=== PATIENT | male | born 1965 ===

== ENCOUNTER 2017-02-19 23:12 | Observation (INO) | payer OTHER ==
--- NOTE | 2017-02-19 23:52 | C.PDOC ---
History Of Present Illness 51 year old male with Hx of seizures and HLD presents to the ED with complaints of chest pain that radiates down his left arm. 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 He decided to come into the Ed after his pain radiated towards his arm, states his CP gets worse with exertion. Patient denies diabetes, fever, nausea, vomit, chills, known sick contacts. Time Seen by Provider: 02/19/17 23:51 Chief Complaint (Nursing): Chest Pain History Per: Patient History/Exam Limitations: no limitations Onset/Duration Of Symptoms: Hrs Current Symptoms Are (Timing): Still Present Pain Scale Rating Of: 4 Quality: Tightness Associated Symptoms: denies: Nausea, Dyspnea, Diaphoresis Exacerbating Factors: Exertion Recent travel outside of the [place]: No Additional History Per: Patient Past Medical History Reviewed: Historical Data, Nursing Documentation, Vital Signs Vital Signs: Last Vital Signs Temp 98 F 02/20/17 00:38 Pulse 62 02/20/17 02:07 Resp 22 02/20/17 02:07 BP 133/77 02/20/17 02:07 Pulse Ox 97 02/20/17 02:46 - Medical History PMH: Hypercholesterolemia, Seizures Surgical History: No Surg Hx Family History: States: Unknown Family Hx - Social History Hx Alcohol Use: No Hx Substance Use: No - Immunization History Hx Tetanus Toxoid Vaccination: No Hx Influenza Vaccination: No Hx Pneumococcal Vaccination: No Review Of Systems Constitutional: Negative for: Fever, Chills, Sweats Cardiovascular: Positive for: Chest Pain. Negative for: Palpitations, Light Headedness Respiratory: Positive for: Shortness of Breath. Negative for: Cough Gastrointestinal: Negative for: Nausea, Vomiting Neurological: Negative for: Weakness, Numbness Physical Exam - Physical Exam Appears: Non-toxic, No Acute Distress Skin: Normal Color, Warm, Dry Head: Atraumatic, Normacephalic Oral Mucosa: Moist Neck: Normal, Supple Chest: Symmetrical, Tenderness (mild ) Cardiovascular: Rhythm Regular (slow), No Friction Rub, No Murmur Respiratory: Normal Breath Sounds, No Accessory Muscle Use, No Rales, No Rhonchi , No Wheezing Gastrointestinal/Abdominal: Bowel Sounds (active), Soft, No Tenderness, No Guarding, No Rebound Extremity: Normal ROM, No Tenderness, No Pedal Edema, No Calf Tenderness, Capillary Refill (less than 2 seconds), No Deformity, No Swelling Pulses: Left Radial: Normal, Right Radial: Normal, Left Dorsalis Pedis: Normal, Right Dorsalis Pedis: Normal Neurological/Psych: Oriented x3, Normal Speech, Normal Cognition, Normal Motor, Normal Sensation ED Course And Treatment - Laboratory Results Result Diagrams: 02/20/17 00:11 02/20/17 00:11 ECG: Interpreted By Me, Viewed By Me ECG Rhythm: Sinus Bradycardia Interpretation Of ECG: Inverted T, AVL, No acute ST-T chnage, no ectopy, interval in normal limits Rate From EC O2 Sat by Pulse Oximetry: 97 Medical Decision Making Medical Decision Making: Impression: 51 y/o male with CP, SOB since this morning Plan : * EKG ordered * Blood work ordered * CXR ordered * ASA and Nitroglycerin administered * UA ordered Upon reevaluation patient states that the medicine administered helped relief the pain. History of patient proves increased chance ACS, spoke with hospitalist Dr. Strauss who agreed and admitted the patient for further observation tonight. Disposition - Disposition Disposition: HOSPITALIZED Disposition Time: 01:55 Condition: FAIR - Clinical Impression Clinical Impression: Chest pain - Scribe Statement The provider has reviewed the documentation as recorded by the Scribe Yoni Steele All medical record entries made by the Scribe were at my direction and personally dictated by me. I have reviewed the chart and agree that the record accurately reflects my personal performance of the history, physical exam, medical decision making, and the department course for this patient. I have also personally directed, reviewed, and agree with the discharge instructions and disposition.
[2017-02-20 00:14] LABS: BASO % 0.6 % (0.0-2.0); EOS # 0.4 K/uL (0.0-0.7); EOS % 5.5 % (0.0-4.0); HEMATOCRIT 41.3 % (35.0-51.0); LYMPH # 2.7 K/uL (1.0-4.3); LYMPH % 40.4 % (20.0-40.0); MEAN CELL VOLUME 93.9 fL (80.0-94.0); MEAN CORPUSCULAR HGB CONC 35.2 g/dL (33.0-37.0); MONO # 0.6 K/uL (0.0-0.8); MONO % 9.7 % (0.0-10.0); RED CELL DISTRIBUTION WIDTH 12.7 % (11.5-14.5); WHITE BLOOD COUNT 6.6 K/uL (4.8-10.8)
[2017-02-20 00:23] LABS: CHLORIDE 98 mmol/L (98-107); INR 1.2; PARTIAL THROMBOPLASTIN TIME 33 SECONDS (21-34); POTASSIUM 3.9 mmol/L (3.6-5.2); SODIUM 135 mmol/L (132-148)
[2017-02-20 00:25] LABS: AST/SGOT 36 U/L (17-59); BILIRUBIN,TOTAL 0.7 mg/dL (0.2-1.3); CARBON DIOXIDE 22 mmol/L (22-30); GFR AFRICAN-AMERICAN > 60
[2017-02-20 00:26] LABS: ALB/GLOB RATIO 1.3 (1.0-2.1); ALKALINE PHOSPHATASE 85 U/L (38-126); ALT/SGPT 50 U/L (21-72); BLOOD UREA NITROGEN 16 mg/dL (9-20); CALCIUM 9.5 mg/dl (8.6-10.4); GLUCOSE,RANDOM 84 mg/dL (75-110); TOTAL PROTEIN 8.3 g/dL (6.3-8.3)
[2017-02-20 01:01] LABS: RBC URINE < 1 /hpf (0-3); URINE BILIRUBIN NEGATIVE (NEGATIVE); URINE BLOOD NEGATIVE (NEGATIVE); URINE COLOR Straw (YELLOW); URINE GLUCOSE (UA) NORMAL (Normal); URINE KETONE NEGATIVE (NEGATIVE); URINE LEUKOCYTE ESTERASE NEG Leu/uL (Negative); URINE PROTEIN NEGATIVE (NEGATIVE); URINE UROBILINOGEN NORMAL mg/dL (0.2-1.0); WBC URINE < 1 /hpf (0-5)
[2017-02-20] MEDS ORDERED: Nitroglycerin 2% Ointment Foilpak UD TOP STA (01:51)
[2017-02-20] MEDS ORDERED: Nitroglycerin 2% Ointment Foilpak UD TOP ONE (02:08)
--- NOTE | 2017-02-20 02:31 | CP.PCM.HP ---
<JonnieHaylee - Last Filed: 02/20/17 02:48> History of Present Illness - History of Present Illness History of Present Illness: History and Physical for Dr. Whitmore 51M presents with chest pain radiating down left arm. Patient has a PMH of seizures and HLD. Patient states he feels pressure on his chest which started at 11 am while he was standing. Patient stated this has never happened before and does not occur with walking. Patient works in a area with cooking. Patient stated the pain lasted around 30minutes but was not constant. Patient denies fever, chills, nausea, vomiting, hematochezia, dysuria, troule with vision. PMH: seizures, HLD PSH: none Social: patient works in kitchen, never smoker, no ETOH, no illicit drugs FHx: no family history of heart disease Allergies NKDA Present on Admission - Present on Admission Any Indicators Present on Admission: No History of DVT/PE: No History of Uncontrolled Diabetes: No Urinary Catheter: No Decubitus Ulcer Present: No Past Patient History - Past Social History Smoking Status: Never Smoked - CARDIAC Hx Hypercholesterolemia: Yes - NEUROLOGICAL Hx Seizures: Yes - PSYCHIATRIC Hx Substance Use: No Meds Allergies/Adverse Reactions: Allergies Allergy/AdvReac Type Severity Reaction Status Date / Time No Known Allergies Allergy Verified 02/20/17 02:40 Physical Exam - Constitutional Appears: Non-toxic - Head Exam Head Exam: NORMAL INSPECTION - Eye Exam Eye Exam: EOMI, Normal appearance - ENT Exam ENT Exam: Mucous Membranes Moist - Respiratory Exam Respiratory Exam: NORMAL BREATHING PATTERN. absent: Accessory Muscle Use, Respiratory Distress - Cardiovascular Exam Cardiovascular Exam: REGULAR RHYTHM, +S1, +S2. absent: Bradycardia, Tachycardia - GI/Abdominal Exam GI & Abdominal Exam: Soft. absent: Tenderness - Extremities Exam Extremities exam: Positive for: full ROM. Negative for: pedal edema - Neurological Exam Neurological exam: Alert, CN II-XII Intact - Psychiatric Exam Psychiatric exam: Normal Affect, Normal Mood - Skin Skin Exam: Dry, Intact, Pallor Results - Vital Signs Recent Vital Signs: Last Vital Signs Temp 98 F 02/20/17 00:38 Pulse 62 02/20/17 02:07 Resp 22 02/20/17 02:07 BP 133/77 02/20/17 02:07 Pulse Ox 97 02/20/17 02:27 - Labs Result Diagrams: 02/20/17 00:11 02/20/17 00:11 Labs: Laboratory Results - last 24 hr 02/20/17 02/20/17 02/20/17 00:11 00:11 00:11 WBC 6.6 RBC 4.40 Hgb 14.5 Hct 41.3 MCV 93.9 MCH 33.0 H MCHC 35.2 RDW 12.7 Plt Count 179 MPV 7.0 L Neut % (Auto) 43.8 L Lymph % (Auto) 40.4 H Hamilton % (Auto) 9.7 Eos % (Auto) 5.5 H Baso % (Auto) 0.6 Neut # 2.9 Lymph # 2.7 Hamilton # 0.6 Eos # 0.4 Baso # 0.0 PT 13.2 H INR 1.2 APTT 33 D-Dimer, Quantitative < 200 Sodium 135 Potassium 3.9 Chloride 98 Carbon Dioxide 22 Anion Gap 19 BUN 16 Creatinine 0.7 L Est GFR ( Amer) > 60 Est GFR (Non-Af Amer) > 60 Random Glucose 84 Calcium 9.5 Total Bilirubin 0.7 AST 36 ALT 50 Alkaline Phosphatase 85 Troponin I < 0.0120 NT-Pro-B Natriuret Pep 48.6 Total Protein 8.3 Albumin 4.6 Globulin 3.7 Albumin/Globulin Ratio 1.3 Urine Color Urine Clarity Urine pH Ur Specific Atco Urine Protein Urine Glucose (UA) Urine Ketones Urine Blood Urine Nitrate Urine Bilirubin Urine Urobilinogen Ur Leukocyte Esterase Urine WBC (Auto) Urine RBC (Auto) 02/20/17 00:56 WBC RBC Hgb Hct MCV MCH MCHC RDW Plt Count MPV Neut % (Auto) Lymph % (Auto) Hamilton % (Auto) Eos % (Auto) Baso % (Auto) Neut # Lymph # Hamilton # Eos # Baso # PT INR APTT D-Dimer, Quantitative Sodium Potassium Chloride Carbon Dioxide Anion Gap BUN Creatinine Est GFR ( Amer) Est GFR (Non-Af Amer) Random Glucose Calcium Total Bilirubin AST ALT Alkaline Phosphatase Troponin I NT-Pro-B Natriuret Pep Total Protein Albumin Globulin Albumin/Globulin Ratio Urine Color Straw Urine Clarity Clear Urine pH 6.0 Ur Specific Atco 1.009 Urine Protein Negative Urine Glucose (UA) Normal Urine Ketones Negative Urine Blood Negative Urine Nitrate Negative Urine Bilirubin Negative Urine Urobilinogen Normal Ur Leukocyte Esterase Neg Urine WBC (Auto) < 1 Urine RBC (Auto) < 1 Assessment & Plan - Assessment and Plan (Free Text) Assessment: Unstable angina Metoprolol 25mg POBID Nitro sublingual 0.5mg x3 PRN chest pain ASA 81mg POQD Serial troponin I's EKGs f/u AM: A1c, TSH, Lipid Panel 02/20 Cardio Consult: Dr. Sincere Arteaga Hyperlipidemia rosuvostatin 20mg IVQD hx Seizures Continue on seizure medications Patient takes 300mg QAM and QHS Patient takes 150mg QNOON Ativan 2mg IVP Q4H PRN seizures Prophylaxis Lovenox 1mg/kg Q12H ~64 Protonix 40mg POQD discussed with Dr. Myranda Cristina DO PGY1 - Date & Time Date: 02/20/17 Time: 02:35 <Myranda GARCIA,Mike - Last Filed: 02/22/17 09:41> Results - Vital Signs Recent Vital Signs: Last Vital Signs Temp 97.8 F 02/21/17 15:00 Pulse 56 L 02/21/17 15:00 Resp 20 02/21/17 15:00 BP 127/86 02/21/17 15:00 Pulse Ox 96 02/21/17 15:00 - Labs Result Diagrams: 02/21/17 08:43 02/21/17 08:43 Labs: Laboratory Results - last 24 hr 02/21/17 02/21/17 08:43 08:43 Hemoglobin A1c 5.8 TSH 3rd Generation 1.54 Attending/Attestation - Attestation I have personally seen and examined this patient.: Yes I have fully participated in the care of the patient.: Yes I have reviewed all pertinent clinical information: Yes Notes (Text): -I agree with the above H&P completed by the resident physician.
[2017-02-20] MEDS ORDERED: Sodium Chloride 0.9% 1,000 ML IV SCH (03:00)
[2017-02-20 07:54] VITALS: RESP 20
[2017-02-20 08:24] LABS: BASO % 0.6 % (0.0-2.0); EOS # 0.4 K/uL (0.0-0.7); HEMATOCRIT 41.8 % (35.0-51.0); MEAN CELL VOLUME 92.9 fL (80.0-94.0); MEAN CORPUSCULAR HEMOGLOBIN 32.7 pg (27.0-31.0); MEAN CORPUSCULAR HGB CONC 35.2 g/dL (33.0-37.0); MEAN PLATELET VOLUME 7.3 fL (7.2-11.7); MONO # 0.4 K/uL (0.0-0.8); MONO % 7.9 % (0.0-10.0); NRBC % 0.1 % (0.0-2.0); RED CELL DISTRIBUTION WIDTH 12.8 % (11.5-14.5); WHITE BLOOD COUNT 4.7 K/uL (4.8-10.8)
[2017-02-20 08:28] LABS: CHLORIDE 99 mmol/L (98-107)
[2017-02-20 08:29] LABS: POTASSIUM 3.2 mmol/L (3.6-5.2); SODIUM 134 mmol/L (132-148)
[2017-02-20 08:31] LABS: ALB/GLOB RATIO 1.8 (1.0-2.1); ALKALINE PHOSPHATASE 69 U/L (38-126); AST/SGOT 34 U/L (17-59); BILIRUBIN,TOTAL 0.6 mg/dL (0.2-1.3); CARBON DIOXIDE 23 mmol/L (22-30); GFR AFRICAN-AMERICAN > 60; TOTAL PROTEIN 6.7 g/dL (6.3-8.3)
[2017-02-20 08:32] LABS: ALT/SGPT 40 U/L (21-72); BLOOD UREA NITROGEN 14 mg/dL (9-20); CALCIUM 8.8 mg/dl (8.6-10.4); GLUCOSE,RANDOM 81 mg/dL (75-110)
[2017-02-20] MEDS: Pantoprazole 40 mg EC Tab PO SCH (09:53)
[2017-02-20] MEDS ORDERED: Metoprolol Succinate 25 mg XL Tab PO SCH ×2 (10:00)
[2017-02-20] MEDS ORDERED: Enoxaparin 80 mg Syringe SC SCH (10:00)
--- NOTE | 2017-02-20 11:04 | RAD ---
PROCEDURE: CHEST RADIOGRAPH, 1 VIEW HISTORY: chest pain COMPARISON: None available. FINDINGS: LUNGS: Poor inspiration with low lung volumes, crowded bronchovascular markings and mild bibasilar atelectasis. PLEURA: No pneumothorax or pleural fluid seen. CARDIOVASCULAR: Normal. OSSEOUS STRUCTURES: No significant abnormalities. VISUALIZED UPPER ABDOMEN: Normal. OTHER FINDINGS: None. IMPRESSION: Poor inspiration with low lung volumes, crowded bronchovascular markings and mild bibasilar atelectasis.
[2017-02-20] MEDS: Potassium Chloride 20 mEq ER Tab PO SCH (11:44)
[2017-02-20] MEDS: carBAMazepine 100 mg/5 ml Oral Susp (450 ml) PO SCH (14:32)
--- NOTE | 2017-02-20 16:29 | CP.PCM.PN ---
<Danelle Sy - Last Filed: 02/20/17 16:18> Subjective - Date & Time of Evaluation Date of Evaluation: 02/20/17 Time of Evaluation: 08:00 - Subjective Subjective: Medicine Progress Note- Dr. Eduard Russell's service: Patient seen and examined at bedside this AM. Patient reports he is feeling much better. Chest pain has resolved since admission. Patient is not sure why chest pain occurred. He denies history of chest pain. Patient admits to taking only seizure medication and cholesterol medication. He has no SOB, no fevers, no chills, no nausea, no vomiting, no palpitations. He does not feel dizzy and denies near-syncope. Objective - Vital Signs/Intake and Output Vital Signs (last 24 hours): Temp Pulse Resp BP Pulse Ox 97.9 F 58 L 20 122/74 95 02/20/17 16:07 02/20/17 16:07 02/20/17 16:07 02/20/17 16:07 02/20/17 16:07 - Medications Medications: Current Medications Acetaminophen (Tylenol 325mg Tab) 650 mg PO Q6 PRN PRN Reason: Fever >100.4 F Aspirin (Aspirin Chewable) 81 mg PO DAILY [facility] Last Admin: 02/20/17 09:53 Dose: 81 mg Carbamazepine (Tegretol) 150 mg PO DAILY@1200 [facility] Last Admin: 02/20/17 14:32 Dose: 150 mg Carbamazepine (Tegretol-Xr) 300 mg PO Q12H [facility] Last Admin: 02/20/17 06:33 Dose: 300 mg Nitroglycerin (Nitrostat Sl Tab) 0.4 mg SL Q5M PRN PRN Reason: Other Pantoprazole Sodium (Protonix Ec Tab) 40 mg PO DAILY [facility] Last Admin: 02/20/17 09:53 Dose: 40 mg Pneumococcal Polyvalent Vaccine (Pneumovax 23 Vaccine) 0.5 ml IM .ONCE ONE Stop: 02/22/17 14:01 Potassium Chloride (K-Dur 20 Meq Er Tab) 40 meq PO DAILY [facility] Last Admin: 02/20/17 11:44 Dose: 40 meq Rosuvastatin Calcium (Crestor) 20 mg PO HS [facility] - Labs Labs: 02/20/17 07:55 02/20/17 07:55 PT 13.2 SECONDS (9.7-12.2) H 02/20/17 00:11 INR 1.2 02/20/17 00:11 APTT 33 SECONDS (21-34) 02/20/17 00:11 - Constitutional Appears: No Acute Distress - Head Exam Head Exam: NORMAL INSPECTION, NORMOCEPHALIC - Eye Exam Eye Exam: EOMI, Normal appearance - ENT Exam ENT Exam: Mucous Membranes Moist - Neck Exam Neck Exam: Full ROM - Respiratory Exam Respiratory Exam: Clear to Ausculation Bilateral, NORMAL BREATHING PATTERN - Cardiovascular Exam Cardiovascular Exam: REGULAR RHYTHM, +S1, +S2 - GI/Abdominal Exam GI & Abdominal Exam: Soft, Normal Bowel Sounds. absent: Distended, Tenderness - Extremities Exam Extremities Exam: Full ROM, Normal Inspection. absent: Pedal Edema - Back Exam Back Exam: Full ROM, NORMAL INSPECTION - Neurological Exam Neurological Exam: Alert, Awake, Oriented x3 - Psychiatric Exam Psychiatric exam: Normal Affect, Normal Mood - Skin Skin Exam: Normal Color, Warm Assessment and Plan (1) Chest pain Assessment & Plan: Troponin negative X3. CK-MB 3.52 EKG X3 shows sinus bradycardia in the 50's with RBBB. Cardio consult placed on admission- Dr. Sincere Arteaga- help appreciated. Called placed to Dr. Arteaga at 16:00 on 02/20/17. Dr. Arteaga will see patient tonight or tomorrow in the AM. ProBNP 48 D-Dimer <200 F/u A1c, TSH, Lipid Panel * D/C Metoprolol 25mg as patient is Bradycardic. * Nitro sublingual 0.5mg x3 PRN chest pain * ASA 81mg PO QD * Crestor 20 mg PO HS Status: Acute (2) Bradycardia Assessment & Plan: EKG X3 shows sinus bradycardia in the 50's with RBBB. Cardio consult placed- Dr. Sincere Arteaga D/C Metoprolol 25mg as patient is Bradycardic. Status: Acute (3) Hyperlipidemia Assessment & Plan: F/U FLP in the AM Patient takes Gemfibrozil 600 mg (2 tabs) PO daily - confirmed with patient's pharmacy ([facility], [place], [place]) Crestor 10 mg PO HS Status: Acute (4) Hx of seizure disorder Assessment & Plan: Patient's home med: Carbamazepine 300mg QAM and QHS and 150mg QNOON- confirmed with patient's pharmacy ([facility], [place], [place]). Ativan 2mg IVP Q4H PRN seizures Seizure Precautions Status: Acute (5) Prophylactic measure Assessment & Plan: Lovenox 40 SC daily Protonix 40mg POQD Status: Acute <DrewEduard Elizondo - Last Filed: 02/20/17 18:03> Objective - Vital Signs/Intake and Output Vital Signs (last 24 hours): Temp Pulse Resp BP Pulse Ox 97.9 F 58 L 20 122/74 95 02/20/17 16:07 02/20/17 16:07 02/20/17 16:07 02/20/17 16:07 02/20/17 16:07 Intake and Output: 02/20/17 02/20/17 06:59 18:59 Intake Total 220 Balance 220 - Medications Medications: Current Medications Acetaminophen (Tylenol 325mg Tab) 650 mg PO Q6 PRN PRN Reason: Fever >100.4 F Aspirin (Aspirin Chewable) 81 mg PO DAILY [facility] Last Admin: 02/20/17 09:53 Dose: 81 mg Carbamazepine (Tegretol) 150 mg PO DAILY@1200 [facility] Last Admin: 02/20/17 14:32 Dose: 150 mg Carbamazepine (Tegretol-Xr) 300 mg PO Q12H [facility] Last Admin: 02/20/17 17:17 Dose: 300 mg Enoxaparin Sodium (Lovenox) 40 mg SC DAILY [facility] Nitroglycerin (Nitrostat Sl Tab) 0.4 mg SL Q5M PRN PRN Reason: Other Pantoprazole Sodium (Protonix Ec Tab) 40 mg PO DAILY [facility] Last Admin: 02/20/17 09:53 Dose: 40 mg Pneumococcal Polyvalent Vaccine (Pneumovax 23 Vaccine) 0.5 ml IM .ONCE ONE Stop: 02/22/17 14:01 Potassium Chloride (K-Dur 20 Meq Er Tab) 40 meq PO DAILY [facility] Last Admin: 02/20/17 11:44 Dose: 40 meq Rosuvastatin Calcium (Crestor) 20 mg PO HS [facility] - Labs Labs: 02/20/17 07:55 02/20/17 07:55 PT 13.2 SECONDS (9.7-12.2) H 02/20/17 00:11 INR 1.2 02/20/17 00:11 APTT 33 SECONDS (21-34) 02/20/17 00:11 Attending/Attestation - Attestation I have personally seen and examined this patient.: Yes I have fully participated in the care of the patient.: Yes I have reviewed all pertinent clinical information, including history, physical exam and plan: Yes Notes (Text): 02/20/17 18:02 Patient was seen and examined at 10:45 AM 02/20/17 552 A. Exam, assesssment and plan were thoroughly gone over with the resident. Eduard Russell D.O.
[2017-02-21 09:00] LABS: BASO % 0.6 % (0.0-2.0); EOS # 0.4 K/uL (0.0-0.7); EOS % 6.9 % (0.0-4.0); HEMATOCRIT 44.5 % (35.0-51.0); LYMPH # 2.1 K/uL (1.0-4.3); MEAN CELL VOLUME 93.4 fL (80.0-94.0); MEAN CORPUSCULAR HEMOGLOBIN 32.9 pg (27.0-31.0); MEAN CORPUSCULAR HGB CONC 35.2 g/dL (33.0-37.0); MEAN PLATELET VOLUME 6.8 fL (7.2-11.7); MONO # 0.4 K/uL (0.0-0.8); MONO % 7.5 % (0.0-10.0); NRBC % 0.1 % (0.0-2.0); RED CELL DISTRIBUTION WIDTH 12.8 % (11.5-14.5); WHITE BLOOD COUNT 5.1 K/uL (4.8-10.8)
[2017-02-21 09:03] LABS: INR 1.1
[2017-02-21 09:22] LABS: CHLORIDE 101 mmol/L (98-107); SODIUM 136 mmol/L (132-148)
[2017-02-21 09:23] LABS: POTASSIUM 3.8 mmol/L (3.6-5.2)
[2017-02-21 09:24] LABS: BILIRUBIN,TOTAL 0.5 mg/dL (0.2-1.3); CARBON DIOXIDE 25 mmol/L (22-30); CHOLESTEROL 227 mg/dL (0-199); GFR AFRICAN-AMERICAN > 60
[2017-02-21 09:25] LABS: ALB/GLOB RATIO 1.2 (1.0-2.1); ALKALINE PHOSPHATASE 74 U/L (38-126); ALT/SGPT 47 U/L (21-72); AST/SGOT 30 U/L (17-59); BLOOD UREA NITROGEN 15 mg/dL (9-20); CALCIUM 9.5 mg/dl (8.6-10.4); GLUCOSE,RANDOM 97 mg/dL (75-110); PHOSPHOROUS 3.5 mg/dL (2.5-4.5); TOTAL PROTEIN 8.5 g/dL (6.3-8.3)
[2017-02-21 09:26] LABS: MAGNESIUM 2.1 mg/dL (1.6-2.3)
[2017-02-21 09:41] LABS: THYROID STIMULATING HORMONE 1.54 mIU/L (0.46-4.68)
[2017-02-21] MEDS ORDERED: Enoxaparin 40 mg Syringe SC SCH (10:00)
[2017-02-21] MEDS: Pantoprazole 40 mg EC Tab PO SCH (10:01)
[2017-02-21] MEDS: Potassium Chloride 20 mEq ER Tab PO SCH (10:02)
[2017-02-21] MEDS: carBAMazepine 100 mg/5 ml Oral Susp (450 ml) PO SCH (11:52)
[2017-02-21 16:11] VITALS: BP 127/86; PULSE 56; TEMP 97.8; O2SAT 96
--- NOTE | 2017-02-21 16:31 | CP.PCM.DIS ---
Provider - Provider Date of Admission: 02/20/17 01:53 Attending physician: Dr. Eduard Russell Primary care physician: [facility] Time Spent in preparation of Discharge (in minutes): 45 Diagnosis - Discharge Diagnosis (1) Chest pain Status: Acute (2) Bradycardia Status: Acute (3) Hyperlipidemia Status: Acute (4) Hx of seizure disorder Status: Acute Hospital Course - Lab Results Lab Results: Most Recent Lab Values WBC 5.1 K/uL (4.8-10.8) 02/21/17 08:43 RBC 4.76 Mil/uL (4.40-5.90) 02/21/17 08:43 Hgb 15.7 g/dL (12.0-18.0) 02/21/17 08:43 Hct 44.5 % (35.0-51.0) 02/21/17 08:43 MCV 93.4 fL (80.0-94.0) 02/21/17 08:43 MCH 32.9 pg (27.0-31.0) H 02/21/17 08:43 MCHC 35.2 g/dL (33.0-37.0) 02/21/17 08:43 RDW 12.8 % (11.5-14.5) 02/21/17 08:43 Plt Count 192 K/uL (130-400) 02/21/17 08:43 MPV 6.8 fL (7.2-11.7) L 02/21/17 08:43 Neut % (Auto) 44.0 % (50.0-75.0) L 02/21/17 08:43 Lymph % (Auto) 41.0 % (20.0-40.0) H 02/21/17 08:43 Yell % (Auto) 7.5 % (0.0-10.0) 02/21/17 08:43 Eos % (Auto) 6.9 % (0.0-4.0) H 02/21/17 08:43 Baso % (Auto) 0.6 % (0.0-2.0) 02/21/17 08:43 Neut # 2.2 K/uL (1.8-7.0) 02/21/17 08:43 Lymph # 2.1 K/uL (1.0-4.3) 02/21/17 08:43 Yell # 0.4 K/uL (0.0-0.8) 02/21/17 08:43 Eos # 0.4 K/uL (0.0-0.7) 02/21/17 08:43 Baso # 0.0 K/uL (0.0-0.2) 02/21/17 08:43 PT 12.5 SECONDS (9.7-12.2) H 02/21/17 08:43 INR 1.1 02/21/17 08:43 APTT 33 SECONDS (21-34) 02/21/17 08:43 D-Dimer, Quantitative < 200 ng/mlDDU (0-243) 02/20/17 00:11 Sodium 136 mmol/L (132-148) 02/21/17 08:43 Potassium 3.8 mmol/L (3.6-5.2) 02/21/17 08:43 Chloride 101 mmol/L (98-107) 02/21/17 08:43 Carbon Dioxide 25 mmol/L (22-30) 02/21/17 08:43 Anion Gap 14 (10-20) 02/21/17 08:43 BUN 15 mg/dL (9-20) 02/21/17 08:43 Creatinine 0.9 mg/dL (0.8-1.5) 02/21/17 08:43 Est GFR ( Amer) > 60 02/21/17 08:43 Est GFR (Non-Af Amer) > 60 02/21/17 08:43 Random Glucose 97 mg/dL (75-110) 02/21/17 08:43 Calcium 9.5 mg/dl (8.6-10.4) 02/21/17 08:43 Phosphorus 3.5 mg/dL (2.5-4.5) 02/21/17 08:43 Magnesium 2.1 mg/dL (1.6-2.3) 02/21/17 08:43 Total Bilirubin 0.5 mg/dL (0.2-1.3) 02/21/17 08:43 AST 30 U/L (17-59) 02/21/17 08:43 ALT 47 U/L (21-72) 02/21/17 08:43 Alkaline Phosphatase 74 U/L (38-126) 02/21/17 08:43 Total Creatine Kinase 395 U/L (55-170) H 02/20/17 07:55 CK-MB (Mass) 3.52 ng/mL (0.0-3.38) H 02/20/17 07:55 Troponin I < 0.0120 ng/mL (0.00-0.120) 02/20/17 13:30 Troponin I, Quant < 0.0120 ng/mL (0.00-0.120) 02/20/17 07:55 NT-Pro-B Natriuret Pep 48.6 pg/mL (0-900) 02/20/17 00:11 Total Protein 8.5 g/dL (6.3-8.3) H 02/21/17 08:43 Albumin 4.6 g/dL (3.5-5.0) 02/21/17 08:43 Globulin 3.8 gm/dL (2.2-3.9) 02/21/17 08:43 Albumin/Globulin Ratio 1.2 (1.0-2.1) 02/21/17 08:43 Triglycerides 194 mg/dL (0-149) H 02/21/17 08:43 Cholesterol 227 mg/dL (0-199) H 02/21/17 08:43 LDL Cholesterol Direct 154 mg/dL (0-129) H 02/21/17 08:43 HDL Cholesterol 62 mg/dL (30-70) 02/21/17 08:43 TSH 3rd Generation 1.54 mIU/L (0.46-4.68) 02/21/17 08:43 Urine Color Straw (YELLOW) 02/20/17 00:56 Urine Clarity Clear (Clear) 02/20/17 00:56 Urine pH 6.0 (5.0-8.0) 02/20/17 00:56 Ur Specific [place] Path 1.009 (1.003-1.030) 02/20/17 00:56 Urine Protein Negative mg/dL (NEGATIVE) 02/20/17 00:56 Urine Glucose (UA) Normal mg/dL (Normal) 02/20/17 00:56 Urine Ketones Negative mg/dL (NEGATIVE) 02/20/17 00:56 Urine Blood Negative (NEGATIVE) 02/20/17 00:56 Urine Nitrate Negative (NEGATIVE) 02/20/17 00:56 Urine Bilirubin Negative (NEGATIVE) 02/20/17 00:56 Urine Urobilinogen Normal mg/dL (0.2-1.0) 02/20/17 00:56 Ur Leukocyte Esterase Neg Tasia/uL (Negative) 02/20/17 00:56 Urine WBC (Auto) < 1 /hpf (0-5) 02/20/17 00:56 Urine RBC (Auto) < 1 /hpf (0-3) 02/20/17 00:56 - Hospital Course Hospital Course: 51M presented with chest pain radiating down left arm. PMH of seizures and HLD. Patient stated he felt pressure on his chest which started at 11 am day of admission while he was standing. Patient stated this has never happened before and does not occur with walking. Patient works in a area with cooking. Patient stated the pain lasted around 30minutes but was not constant. Denied fever, chills, nausea, vomiting, hematochezia, dysuria, trouble with vision. Patient was admitted to telemetry. Troponin negative X3. CK-MB 3.52. EKG X3 shows sinus bradycardia in the 50's with RBBB. Cardio consult placed on admission- Dr. Sincere Arteaga. On admission, ProBNP 48, D-Dimer <200. Home seizure medications were resumed. Patient reported chest pain had resolved. Patient to follow up at the [facility] in 1 week. Patient aware he will need an ECHO and stress test done when he follows up. This is a summary of the hospital course. Please see chart for full details. Discharge Exam - Head Exam Head Exam: NORMAL INSPECTION, NORMOCEPHALIC - Eye Exam Eye Exam: EOMI, Normal appearance Pupil Exam: NORMAL ACCOMODATION, PERRL - Neck Exam Neck exam: Full Rom, Normal Inspection - Respiratory Exam Respiratory Exam: Chest Wall Tenderness, Clear to PA & Lateral, NORMAL BREATHING PATTERN - Cardiovascular Exam Cardiovascular Exam: REGULAR RHYTHM - GI/Abdominal Exam GI & Abdominal Exam: Normal Bowel Sounds, Unremarkable - Extremities Exam Extremities exam: full ROM - Back Exam Back exam: FULL ROM - Neurological Exam Neurological exam: Alert, Oriented x3 - Psychiatric Exam Psychiatric exam: Normal Affect, Normal Mood - Skin Skin Exam: Dry, Normal Color, Warm Discharge Plan - Discharge Medications Prescriptions: Carbamazepine [Carbatrol] 300 mg PO BID #75 cer Gemfibrozil 1,200 mg PO DAILY #60 tablet - Follow Up Plan Condition: FAIR Disposition: HOME/ ROUTINE Instructions: Chest Pain (DC), Bradycardia (DC) Additional Instructions: Discharge patient to home. Please resume your home medications: Carbamazepine 300mg by mouth in the morning and at night [id number] by mouth at noon Gemfibrozil 600 mg (2 tabs) by mouth daily Please follow up at the [facility] in 1 week. Call: [phone] to make appointment. You will need an ECHO and stress test done. Please return to the emergency room if chest pain or associated symptoms return. Por favor siga tomando dinorah medicamentos: Carbamazepine 300 mg por va oral en la maana y en la noche [id number] mg por va oral al medioda Gemfibrozil 600 mg (2 tabletas) por va oral al da Por favor gege un seguimiento en el [facility] en 1 semana. Llamar: [phone] para hacer rosangela. Necesitar un ECHO y nathan prueba cardiaca. Por favor regrese a la norma de emergencias si regresa el dolor en el pecho o otros sntomas. Referrals: [facility] [Provider Group]
--- NOTE | 2017-02-22 00:49 | CON ---
REQUESTING PHYSICIAN: Dr. Russell. HISTORY OF PRESENT ILLNESS: This is a 51-year-old gentleman with no previous history of hypertension, diabetes, asthma, angina, or documented HI. No history of previous history of cardiac pains. No history of CHF. No ulcers. No bleeding. No TIAs. No CVAs. Never been hospitalized for any cardiac problems. PERSONAL HISTORY: Does not smoke, does not drink. FAMILY HISTORY: Negative for premature coronary artery disease. PAST MEDICAL HISTORY: Essentially unremarkable. REVIEW OF SYSTEMS: History of seizures, otherwise unremarkable. Last seizure was 2 years ago, on medication. PHYSICAL EXAMINATION: GENERAL: Shows a middle aged gentleman in no distress. VITAL SIGNS: He is 5.4, weight 140 pounds. His blood pressure is 124/76, heart rate of 60, respiratory rate of 12, afebrile. HEENT: Normal. NECK: Supple. LUNGS: Clear. CARDIAC: Showed normal S1 and S2. ABDOMEN: Soft. EXTREMITIES: Unremarkable. Distal pulses are intact. LABORATORY DATA: EKG sinus rhythm *------*. Two sets of enzymes are negative. ASSESSMENT: He is a 51-year-old gentleman with atypical chest pain, pain does not appear to be cardiac in nature. Pain occurs at the rest more in the epigastrium. He goes to gym, walks around, does all the activities without any discomfort. RECOMMENDATIONS: At this point to continue with the baby aspirin one a day; start him on a statins, Lipitor or Crestor 10 mg once a day, and needs regular stress test and echocardiogram with the Doppler studies. Both this tests can be done as an outpatient. Care of plan was explained to the patient and the family and the RN on the floor. Sincere Arteaga MD
--- NOTE | 2017-02-22 12:55 | CARD ---
APPROVED REPORT EKG Measurement Heart [id number] [place] [id number] <Conclusion> Normal sinus rhythm Left axis deviation Incomplete right bundle branch block Abnormal ECG
--- NOTE | 2017-02-22 12:55 | CARD ---
APPROVED REPORT EKG Measurement Heart [id number] DC [id number] <Conclusion> Sinus bradycardia with sinus arrhythmia Left axis deviation Abnormal ECG
--- NOTE | 2017-02-22 12:55 | CARD ---
APPROVED REPORT EKG Measurement Heart [id number] [place] 152P63 [id number] <Conclusion> Sinus bradycardia Left axis deviation Incomplete right bundle branch block Abnormal ECG
[2017-02-22] MEDS ORDERED: Pneumococcal 23-Valent Vaccine IM ONE (14:00)
== END 2017-02-21 17:19 | disposition home or self-care (01) ==
LOC: C.ER 23:12 → C.5S 02-20 01:53
PROVIDERS: ADMIT Internal Medicine; ATTEND Internal Medicine
DX: R07.89 Other chest pain (principal); E78.5 Hyperlipidemia, unspecified; G40.909 Epilepsy, unspecified, not intractable, without status epilepticus; I45.10 Unspecified right bundle-branch block
CPT/HCPCS: 36415; 71010; 80053; 80061; 81001; 83036; 83735; 83880; 84100; 84443; 84484; 85025; 85378; 85610; 85730; 93005; 93306; 99285; G0378; J1650; J7040